=== PATIENT | female | born 1995 | race Hispanic/Latino ===

== ENCOUNTER 2022-07-16 10:09 | Inpatient (IN) | payer MEDICAID, OTHER ==
[2022-07-16] MEDS ORDERED: hydrALAZINE 20 MG/ML VIAL SLOW IVP PRN (10:39)
[2022-07-16 10:40] VITALS: BMI 27.5
[2022-07-16] MEDS ORDERED: Promethazine HCl 25 MG/ML VIAL IM PRN ×2 (10:49→12:32)
[2022-07-16] MEDS ORDERED: Diphenoxylate HCl/Atropine Tablet PO PRN (10:49)
[2022-07-16] MEDS ORDERED: Bicitra 30 ML UDCUP PO PRN ×2 (10:49→10:55)
[2022-07-16] MEDS ORDERED: Carboprost 250 MCG/ML AMP IM PRN (10:49)
[2022-07-16] MEDS ORDERED: Acetaminophen 500 MG TAB PO PRN (10:49)
[2022-07-16] MEDS ORDERED: Tranexamic Acid 1,000 MG in Sodium Chloride 0.9% 250 ML 250 ML IVPB PRN (10:49)
[2022-07-16] MEDS ORDERED: Ondansetron PF 4 MG/2 ML Vial IVP PRN ×2 (10:49→12:32)
[2022-07-16] MEDS ORDERED: Misoprostol 200 MCG TAB PR PRN (10:49)
[2022-07-16] MEDS ORDERED: Famotidine/PF 20 mg/2ml Vial SLOW IVP PRN ×2 (10:49→10:55)
[2022-07-16] MEDS ORDERED: Betamet Acet/Betamet Na Ph 30 MG/5 ML VIAL ONE (10:55)
[2022-07-16] MEDS ORDERED: Ibuprofen 800 MG TAB PO PRN (10:55)
[2022-07-16] MEDS ORDERED: HYDROcodone/Acetaminophen 5/325 mg Tablet PO PRN ×3 (10:55→15:42)
[2022-07-16] MEDS ORDERED: Penicillin G Potassium 5 MILL.UNITS in Sodium Chloride 0.9% 100 ML IVPB SCH (11:00)
[2022-07-16] MEDS ORDERED: CEFAZOLIN 2 GM in Sodium Chloride 0.9% 100 ML IVPB SCH (11:00)
[2022-07-16] MEDS ORDERED: Azithromycin 500 MG in Sodium Chloride 0.9% 250 ML 250 ML IVPB SCH ×2 (11:00→11:30)
[2022-07-16] MEDS ORDERED: Betamet Acet/Betamet Na Ph 30 MG/5 ML VIAL IM SCH (11:30)
[2022-07-16 12:02] LABS: Hemoglobin 14.6 g/dL (12.0-15.5); Mean Corpuscular Hemoglobin 29.1 pg (27.0-33.0); Mean Corpuscular Volume 85.7 fl (81.6-98.3); Mean Platelet Volume 11.5 fl (7.4-10.4); Platelet Count 246 10x3/uL (150-450); Red Blood Cell (RBC) Count 5.02 10x6/uL (3.90-5.03); White Blood Cell (WBC) Count 9.5 10x3/uL (3.5-10.5)
[2022-07-16] MEDS ORDERED: Dexamethasone 4 mg/ml Vial ONE (12:16)
[2022-07-16] MEDS ORDERED: Oxytocin 10 UNITS/ML VIAL ONE (12:16)
[2022-07-16] MEDS ORDERED: Morphine PF 10 MG/10 ML VIAL ONE (12:16)
[2022-07-16] MEDS ORDERED: Ondansetron PF 4 MG/2 ML Vial ONE (12:16)
[2022-07-16] MEDS ORDERED: Fentanyl 100 MCG/2 ML VIAL ONE (12:16)
[2022-07-16] MEDS ORDERED: Ketorolac Tromethamine 30 MG/ML VIAL ONE (12:17)
[2022-07-16] MEDS: Penicillin G 2.5 MILL.units 2.5 MILL.UNITS in Premix Bag 1 BAG IVPB SCH ×2 (12:19→17:13)
[2022-07-16 12:27] LABS: Syphilis Antibody Nonreactive (Nonreactive); Syphilis Antibody Index 0.07 S/CO (<1.00 Non-Reactive)
[2022-07-16 12:28] LABS: HBSAg Index 0.15 S/CO (0-0.99); Hep B Surf Ag - L&D Non-Reactive S/CO (NonReactive)
[2022-07-16] MEDS ORDERED: Fentanyl 100 MCG/2 ML VIAL SLOW IVP PRN (12:32)
[2022-07-16] MEDS ORDERED: Promethazine HCl 25 MG SUPP PR PRN (12:32)
[2022-07-16] MEDS ORDERED: Moisturizing Cream (Eucerin) 113 GM JAR TOP PRN (12:32)
[2022-07-16] MEDS ORDERED: diphenhydrAMINE 50 MG/ML VIAL IVP PRN (12:32)
[2022-07-16] MEDS ORDERED: Naloxone HCl 0.4 mg/ml Vial IVP PRN ×2 (12:32)
[2022-07-16] MEDS ORDERED: Ondansetron HCl/PF 4 MG/2 ML Vial IVP PRN (12:32)
[2022-07-16] MEDS ORDERED: Meperidine HCl/PF 25 MG/ML VIAL SLOW IVP PRN (12:32)
[2022-07-16] MEDS ORDERED: Naloxone HCl 0.4 mg/ml Vial IV PRN (12:32)
[2022-07-16] MEDS ORDERED: Communication Order-Pharmacy FS SCH (12:45)
[2022-07-16] MEDS ORDERED: Promethazine HCl 25 MG/ML VIAL ONE (13:04)
[2022-07-16 15:10] LABS: SARS-CoV-2 NAA Rapid Test Not Detected (NotDetected)
[2022-07-16] MEDS ORDERED: Acetaminophen 325 MG TAB PO PRN (15:42)
[2022-07-16] MEDS ORDERED: Boostrix 0.5 ML (Tdap) VIAL (>/=7 yrs of age) IM ONE (15:42)
[2022-07-16] MEDS ORDERED: Simethicone Chewable 80 MG TAB PO SCH (15:42)
[2022-07-16] MEDS ORDERED: Simethicone Chewable 80 MG TAB PO PRN (17:46)
[2022-07-16] MEDS: Ferrous Sulfate 325 MG TAB PO SCH (19:12)
[2022-07-16] MEDS: Docusate 100 MG CAP PO SCH (19:12)
[2022-07-16] MEDS: Ketorolac Tromethamine 30 MG/ML VIAL IVP SCH (20:23)
[2022-07-17] MEDS ORDERED: HYDROcodone/Acetaminophen 5/325 mg Tablet PO PRN ×2 (00:45)
[2022-07-17] MEDS: Ketorolac Tromethamine 30 MG/ML VIAL IVP SCH ×3 (03:05→14:17)
[2022-07-17 03:38] LABS: Hemoglobin 13.5 g/dL (12.0-15.5); Mean Corpuscular HGB CONC 33.9 g/dL (32.0-36.0); Mean Corpuscular Volume 85.4 fl (81.6-98.3); Mean Platelet Volume 11.7 fl (7.4-10.4); Platelet Count 259 10x3/uL (150-450); RBC Distribution Width 12.7 % (11.5-14.5); Red Blood Cell (RBC) Count 4.66 10x6/uL (3.90-5.03); White Blood Cell (WBC) Count 16.6 10x3/uL (3.5-10.5)
[2022-07-17] MEDS: Ferrous Sulfate 325 MG TAB PO SCH ×2 (07:59→19:12)
[2022-07-17] MEDS: Prenatal Vitamin 1 TAB PO SCH (08:32)
[2022-07-17] MEDS: Polyethylene Glycol 3350 17 GM Packet PO SCH (08:33)
[2022-07-17] MEDS: Docusate 100 MG CAP PO SCH ×2 (08:33→21:36)
[2022-07-17] MEDS: Ibuprofen 800 MG TAB PO SCH (21:36)
[2022-07-18 04:54] VITALS: BP 102/57; TEMP 98.4
[2022-07-18] MEDS: Ibuprofen 800 MG TAB PO SCH (05:49)
[2022-07-18] MEDS: Docusate 100 MG CAP PO SCH (09:46)
[2022-07-18] MEDS: Polyethylene Glycol 3350 17 GM Packet PO SCH (09:46)
[2022-07-18] MEDS: Prenatal Vitamin 1 TAB PO SCH (09:46)
== END 2022-07-18 16:45 | disposition home or self-care (01) | DRG 786 ==
LOC: CSHLD/OP 10:09 → CSHLD 10:50 → CSHPP 16:51
PROVIDERS: ADMIT Obstetrics & Gynecology; ATTEND Obstetrics & Gynecology
PROC: 10D00Z1 Extraction of Products of Conception, Low, Open Approach (ICD-10-PCS; principal; 2022-07-16)
DX: O42.013 Preterm premature rupture of membranes, onset of labor within 24 hours of rupture, third trimester (principal); O60.14X0 Preterm labor third trimester with preterm delivery third trimester, not applicable or unspecified; Z3A.33 33 weeks gestation of pregnancy; Z37.0 Single live birth; Z20.822 Contact with and (suspected) exposure to COVID-19; O34.211 Maternal care for low transverse scar from previous cesarean delivery; O24.425 Gestational diabetes mellitus in childbirth, controlled by oral hypoglycemic drugs; Z79.84 Long term (current) use of oral hypoglycemic drugs
CPT/HCPCS: 36415; 51702; 85027; 86780; 86850; 86900; 86901; 87340; J0702; J1100; J1885; J2274; J2405; J2540; J2550; J2590; J3010; J3490; S0028; U0002

== ENCOUNTER 2024-01-19 21:35 | Day surgery (SDC) | payer MEDICAID, OTHER ==
[2024-01-19 21:59] VITALS: BMI 23.6
[2024-01-19] MEDS ORDERED: hydrALAZINE 20 MG/ML VIAL SLOW IVP PRN (23:01)
[2024-01-19 23:12] LABS: Bilirubin Neg (Negative); Blood, Urine Negative (Negative); Clarity Clear (Clear); Glucose, Urine (Dipstick) Normal (Negative); Ketone, Urine 5 mg/dL (Negative); Leukocyte Negative (Negative); Nitrite Negative (Negative); Protein, Urine (Dipstick) Negative (Neg-Trace); Urobilinogen Normal mg/dL (Less than 2)
[2024-01-19 23:32] LABS: CAUTI Indications for Culture Fever or rigors; RBC/HPF 0-3 HPF (0-3); WBC/HPF 0-3 HPF (0-3)
[2024-01-19 23:35] LABS: Bacteria/HPF 1+ HPF (None Seen); Mucous/LPF Rare LPF (<2+)
[2024-01-19 23:38] LABS: Urine Culture Reflex No No
== END 2024-01-19 23:56 | disposition home or self-care (01) ==
LOC: CSHLD/OP 21:35
PROVIDERS: ATTEND Obstetrics & Gynecology
DX: O99.891 Other specified diseases and conditions complicating pregnancy (principal); R10.9 Unspecified abdominal pain; M54.9 Dorsalgia, unspecified; O47.02 False labor before 37 completed weeks of gestation, second trimester; O24.419 Gestational diabetes mellitus in pregnancy, unspecified control; O13.2 Gestational [pregnancy-induced] hypertension without significant proteinuria, second trimester; O43.212 Placenta accreta, second trimester; Z3A.25 25 weeks gestation of pregnancy; Z87.59 Personal history of other complications of pregnancy, childbirth and the puerperium; Z79.899 Other long term (current) drug therapy
CPT/HCPCS: 81001; 99283

== ENCOUNTER → 2024-03-27 | Emergency (ER) | payer OTHER, SELFPAY ==
[2024-03-27 19:32] LABS: #Basophils 0.04 10x3/uL (0.0-0.2); #Eosinophils 0.15 10x3/uL (0.0-0.5); #Monocytes 0.38 10x3/uL (0.0-1.1); #Neutrophils 5.53 10x3/uL (1.5-8.4); %Basophils 0.5 % (0.0-2.0); %Eosinophils 1.7 % (0.0-6.0); %Lymphocytes 29.2 % (18.0-47.0); %Monocytes 4.4 % (0.0-10.0); Hematocrit 40.4 % (34.9-44.5); Hemoglobin 13.4 g/dL (12.0-15.5); Mean Corpuscular HGB CONC 33.2 g/dL (32.0-36.0); Mean Corpuscular Hemoglobin 29.8 pg (27.0-33.0); Mean Corpuscular Volume 89.8 fL (81.6-98.3); Mean Platelet Volume 11.1 fL (7.4-10.4); Platelet Count 351 10x3/uL (150-450); RBC Distribution Width 12.5 % (11.5-14.5); White Blood Cell (WBC) Count 8.7 10x3/uL (3.5-10.5)
[2024-03-27 19:44] LABS: ALT (SGPT) 41 U/L (8-55); AST (SGOT) 18 U/L (5-34); Albumin 2.7 g/dL (3.5-5.0); Alkaline Phosphatase 109 U/L (40-110); Anion Gap 13 mmol/L (10-20); BUN (Urea Nitrogen) 9 mg/dL (7.0-18.7); Bilirubin, Total 0.2 mg/dL (0.2-1.2); Calc. Creatinine Clearance 0 mL/min (70-130); Carbon Dioxide 25 mmol/L (22-29); Chloride 108 mmol/L (98-107); Estimated GFR 122; Glucose 91 mg/dL (70-105); Potassium 4.6 mmol/L (3.5-5.1); Protein, Total 6.7 g/dL (6.0-8.3); Sodium 141 mmol/L (136-145)
== END ==
LOC: CSHERS 17:50
DX: O90.89 Other complications of the puerperium, not elsewhere classified (principal); R60.0 Localized edema; Z55.0 Illiteracy and low-level literacy
CPT/HCPCS: 36415; 80053; 85025